=== PATIENT | male | born 1970 | race Caucasian/White ===

== ENCOUNTER → 2021-02-13 | Outpatient (CLI) | payer BC ==
[2021-02-13 10:40] LABS: BASO # 0.08 (0.02-0.10); EOS # 0.26 (0.04-0.40); EOS % 3.7 % (0.0-4.0); HEMATOCRIT 43.5 % (42.0-52.0); HEMOGLOBIN 15.2 g/dL (13.5-18.0); LYMPH# 1.83 (1.50-4.00); MEAN CELL VOLUME 88 fl (78-100); MEAN CORPUSCULAR HEMOGLOBIN 31 pg (27-31); MEAN CORPUSCULAR HGB CONC 35 g/dL (33-37); MEAN PLATELET VOLUME 9.2 fl (7.4-10.4); MONO # 0.56 (0.20-0.80); NEU # 4.24 (1.40-6.50); PLATELET COUNT 308 K/mm3 (130-400); RED BLOOD COUNT 4.95 M/mm3 (4.20-5.60); RED CELL DISTRIBUTION WIDTH 11.8 % (11.5-14.5); WHITE BLOOD COUNT 7.1 K/mm3 (4.8-10.8)
[2021-02-13 10:53] LABS: POTASSIUM 4.1 mmol/L (3.5-5.1)
[2021-02-13 10:54] LABS: ALBUMIN 4.2 g/dL (3.5-5.0)
[2021-02-13 10:55] LABS: CALCIUM 8.6 mg/dL (8.3-10.5)
[2021-02-13 10:56] LABS: TOTAL PROTEIN 7.1 g/dL (6.4-8.3)
[2021-02-13 10:58] LABS: TOTAL BILIRUBIN 0.8 mg/dL (0.2-1.2)
== END ==
LOC: LAB 10:25
PROVIDERS: Internal Medicine
DX: Z00.00 Encounter for general adult medical examination without abnormal findings (principal); Z12.5 Encounter for screening for malignant neoplasm of prostate; R79.89 Other specified abnormal findings of blood chemistry

== ENCOUNTER → 2021-03-31 | Outpatient (CLI) | payer BC | LOC: LAB 10:07 | DX: E03.9 Hypothyroidism, unspecified (principal) ==

== ENCOUNTER → 2021-05-27 | Outpatient (CLI) | payer BC | LOC: LAB 13:12 | DX: E55.9 Vitamin D deficiency, unspecified (principal) ==

== ENCOUNTER → 2022-04-06 | Outpatient (CLI) | payer BC ==
[2022-04-06 10:50] LABS: BASO # 0.07 K/mm3 (0.02-0.10); EOS # 0.31 K/mm3 (0.04-0.40); EOS % 5.6 % (0.0-4.0); HEMATOCRIT 45.4 % (42.0-52.0); HEMOGLOBIN 15.7 g/dL (13.5-18.0); LYMPH# 1.51 K/mm3 (1.50-4.00); MEAN CELL VOLUME 90 fl (78-100); MEAN CORPUSCULAR HEMOGLOBIN 31 pg (27-31); MEAN CORPUSCULAR HGB CONC 35 g/dL (33-37); MONO # 0.45 K/mm3 (0.20-0.80); PLATELET COUNT 230 K/mm3 (130-400); RED BLOOD COUNT 5.03 M/mm3 (4.20-5.60); RED CELL DISTRIBUTION WIDTH 12.1 % (11.5-14.5); WHITE BLOOD COUNT 5.6 K/mm3 (4.8-10.8)
[2022-04-06 11:18] LABS: ALBUMIN 4.5 g/dL (3.5-5.0)
[2022-04-06 11:19] LABS: CALCIUM 9.3 mg/dL (8.3-10.5)
[2022-04-06 11:20] LABS: TOTAL PROTEIN 7.3 g/dL (6.4-8.3)
[2022-04-06 14:18] LABS: TOTAL BILIRUBIN 0.9 mg/dL (0.2-1.2)
== END ==
LOC: LAB 09:28
PROVIDERS: Internal Medicine
DX: Z00.00 Encounter for general adult medical examination without abnormal findings (principal); Z12.5 Encounter for screening for malignant neoplasm of prostate; Z12.11 Encounter for screening for malignant neoplasm of colon; Z28.39 Other underimmunization status

== ENCOUNTER 2024-10-20 09:00 | Outpatient (RCR) | payer BC | END 2024-10-20 19:00 | disposition home or self-care (01) | LOC: PT 09:00 | DX: I69.398 Other sequelae of cerebral infarction (principal) ==

== ENCOUNTER → 2024-10-20 | Outpatient (RCR) | payer BC | LOC: OT | DX: I69.359 Hemiplegia and hemiparesis following cerebral infarction affecting unspecified side (principal) ==